=== PATIENT | female | born 1990 | race Caucasian/White ===

== ENCOUNTER 2019-06-21 10:46 | Outpatient (REF) | payer BC, SELFPAY ==
[2019-06-21 13:06] LABS: HCT 42.5 % (36.0-46.0); HGB 13.9 g/dL (12.0-15.5); Mean Corp. HGB Concentration 32.7 g/dL (32.0-36.0); Mean Corpuscular Hemoglobin 29.7 pg (27.0-33.0); Mean Corpuscular Volume 90.8 fL (80-95); Mean Platelet Volume 10.3 fL (8.0-11.0); Platelet Count 230 x1000/uL (130-400); RBC 4.68 m/cumm (4.00-5.20); RBC Distribution Width 11.6 % (11.7-14.6); White Blood Cell Count 3.49 k/cumm (4.4-10.8)
[2019-06-21 14:01] LABS: ALT 22 U/L (14-59); AST 12 U/L (15-37); Albumin 4.1 g/dL (3.4-5.0); Alkaline Phosphatase 56 U/L (46-116); Anion Gap 8.1 mmol/L (3-11); BUN 9 mg/dL (7-18); Bilirubin, Total 0.4 mg/dL (0.2-1.0); CO2 28.9 mmol/L (21.0-32.0); CREATININE 0.76 mg/dL (0.55-1.02); Calcium 9.3 mg/dL (8.5-10.1); Chloride 103 mmol/L (98-107); Glucose 91 mg/dL (70-100); Potassium 4.5 mmol/L (3.5-5.1); Sodium 140 mmol/L (136-145)
[2019-06-23 13:03] LABS: IgA 96 mg/dL (85-499); Interpretation SEE COMMENTS; Tissue Transglutaminase IgA <1.2 U/mL (<4.0)
== END 2019-06-21 11:06 ==
LOC: NCHCN 10:46
PROVIDERS: PCP Family Medicine; Visit Provider Family Medicine
DX: R10.13 Epigastric pain (principal)
CPT/HCPCS: 80053; 82784; 83516; 85027

== ENCOUNTER 2020-08-07 00:47 | Outpatient (CLI) | payer BC, SELFPAY ==
--- NOTE | 2020-08-07 09:18 | DI.US_ITS ---
EXAM: US PELVIS CLINICAL HISTORY: iud in place uncomfortable. wonders if has slipped Z97.5 IUD, R10.2 PELVIC. TECHNIQUE: Transabdominal pelvic ultrasound was performed using standard protocol. COMPARISON: No exams were available for comparison FINDINGS: KIDNEYS: Kidneys are symmetric in size. No evidence of renal calculi. No evidence of hydronephrosis. No renal mass or cyst identified. UTERUS: Position: Anteverted. Size: 7.3 long by 3 AP by 4.6 transverse cm Endometrium: 0.3 cm. Normal for patient's menstrual status. There is an IUD in good position within t he endometrial canal. Myometrium: Unremarkable. Cervix: Unremarkable. OVARIES: Right: 3.2 x 2.2 x 2.5 cm Cyst or mass: None. Left: 3.0 x 2.1 x 2.1 cm Cyst or mass: None. DOPPLER: Color: Symmetric and uniform flow to both ovaries. No hyperemia. CUL-DE-SAC: Free fluid: None. Other: None. IMPRESSION: 1. Normal sonographic appearance of the kidneys. 2. Normal-appearing uterus with endometrial stripe within normal limits. 3. The IUD is in good position within the endometrial canal. 4. Unremarkable bilateral ovaries. DATA REPOSITORY:
== END 2020-08-07 01:07 ==
PROVIDERS: PCP Family Medicine; Visit Provider Obstetrics & Gynecology Gynecology
DX: R10.2 Pelvic and perineal pain (principal); Z97.5 Presence of (intrauterine) contraceptive device
CPT/HCPCS: 76856

== ENCOUNTER 2021-07-20 14:09 | Outpatient (REF) | payer BC, SELFPAY ==
--- NOTE | 2021-07-20 13:30 | PAPFT_PTH ---
PATIENT: Cee Gonsalez LOC: [facility] U#:[id number] AGE/SX: 30/F ROOM: RE07/20/[address]: Shanell Spivey : 1990 BED: DIS: 07/20/2021 SPEC #: [id number] RECD: 07/21/21 11:49 STATUS: ARNAVRey REWei #: [id number] ALBERTO: 07/20/21 13:[address]: Shanell Spivey DEPT: [facility] Cytology RECD BY: Suzie Sanchez ENTERED: 07/21/21 11:50 SP TYPE: PAPFT OTHR DR: Marcia Reyes Tissues: 1 - CX/ENDOCX FOR PAP SMEARS Procedures: PAP THIN PREP/[facility] Screening HPV DNA PROBE Comments: [id number]
== END 2021-07-20 14:10 | disposition home or self-care (01) ==
LOC: LBN 14:09
PROVIDERS: PCP Family Medicine; Visit Provider Obstetrics & Gynecology Gynecology
DX: Z12.4 Encounter for screening for malignant neoplasm of cervix (principal); Z11.51 Encounter for screening for human papillomavirus (HPV)
CPT/HCPCS: 88142; 87624

== ENCOUNTER 2024-11-17 17:17 | Outpatient (REF) | payer OTHER, SELFPAY ==
[2024-11-17 20:11] LABS: HCT 40.7 % (36.0-46.0); MCH 30.4 pg (27.0-33.0); MCHC 34.4 % (32.0-36.0); MCV 89 fL (80-95); MPV 10.1 fL (8.0-11.0); Platelet Count 232 10^3/uL (130-400); RDW 11.3 % (11.7-14.6); RDW-SD 36.1 fL; WBC 5.25 10^3/uL (4.4-10.8)
[2024-11-17 20:33] LABS: ALT 19 U/L (14-59); AST 11 U/L (15-37); Albumin 4.2 g/dL (3.4-5.0); Alkaline Phosphatase 61 U/L (46-116); Anion Gap 11.7 mmol/L (3-11); BUN 11 mg/dL (7-18); Bilirubin, Total 0.3 mg/dL (0.2-1.0); CO2 27.3 mmol/L (21.0-32.0); CREATININE 0.9 mg/dL (0.55-1.02); Calcium 8.8 mg/dL (8.5-10.1); Chloride 106 mmol/L (98-107); Estimated GFR 86.03 (mL/min/1.73m2); Glucose 72 mg/dL (74-106); Potassium 3.6 mmol/L (3.5-5.1); Sodium 145 mmol/L (136-145); TSH (W/Ref FT4) 1.57 uIU/mL (0.36-3.74); Total Protein 6.8 g/dL (6.4-8.2); Vitamin B12 374 pg/mL (193-986)
== END 2024-11-17 17:18 | disposition home or self-care (01) ==
LOC: NCHCN 17:17
PROVIDERS: PCP Family Medicine; Visit Provider Family Medicine
DX: R53.83 Other fatigue (principal)
CPT/HCPCS: 80053; 85027; 82607; 84443